=== PATIENT | female | born 1970 | race Caucasian/White ===

== ENCOUNTER 2018-11-13 20:35 | Emergency (ER) | payer OTHER, SELFPAY ==
[2018-11-13] MEDS ORDERED: PANTOPRAZOLE 40 MG INJ ONE (22:51)
[2018-11-13] MEDS ORDERED: NA CHLORIDE 0.9% 1,000 ML ONE (22:51)
[2018-11-13 23:07] LABS: Urine Blood NEGATIVE (NEG); Urine Glucose NEGATIVE (NEG); Urine Protein TRACE (NEG); Urine pH 6.5 (5.0-7.0)
[2018-11-13 23:10] LABS: Albumin 3.7 g/dL (3.4-5.0); Bilirubin Direct 0.2 mg/dL (0-0.2); Bilirubin Total 0.8 mg/dL (0.2-1.0); Protein, Total 7.4 g/dL (6.4-8.2)
[2018-11-13] MEDS ORDERED: DICYCLOMINE HCL 10 MG CAP ONE (23:36)
--- NOTE | 2018-11-14 01:15 | ER ---
Nurse's Notes [facility] Name: Felicity Melendez Age: 48 yrs Sex: Female : 1970 Arrival Date: 11/13/2018 Time: 20:42 Bed 16 Private MD: Diagnosis: Upper abdominal pain, unspecified Presentation: 11/13 20:49 Presenting complaint: Patient states: 1815 epigastric pain with N/V. pt stated "feels ak1 like muscle spasms.". Transition of care: patient was not received from another setting of care. Onset of symptoms was November 13, 2018. Risk Assessment: Do you want to hurt yourself or someone else? Patient reports no desire to harm self or others. Initial Sepsis Screen: Does the patient have a suspected source of infection? No. Patient's initial sepsis screen is negative. Care prior to arrival: None. 20:49 Method Of Arrival: Ambulatory ak1 20:49 Acuity: ROHIT 3 ak1 Triage Assessment: 20:51 General: Appears uncomfortable, Behavior is calm, cooperative. Pain: Complains of pain ak1 in epigastric area, right upper quadrant and left upper quadrant. EENT: No signs and/or symptoms were reported regarding the EENT system. 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 - Social history:: Smoking status: Patient/guardian denies using tobacco. - Ebola Screening: : No symptoms or risks identified at this time. Screenin:52 Abuse screen: Denies threats or abuse. Denies injuries from another. Nutritional ak1 screening: No deficits noted. Tuberculosis screening: No symptoms or risk factors identified. Fall Risk None identified. Assessment: 21:14 General: Appears in no apparent distress. comfortable, Behavior is calm, cooperative, jb4 appropriate for age. Pain: Complains of pain in epigastric area and umbilical area Pain does not radiate. Pain currently is 10 out of 10 on a pain scale. Quality of pain is described as crampy, Pain began 1830. Neuro: Level of Consciousness is awake, alert, obeys commands, Oriented to person, place, time, situation. Cardiovascular: Patient's skin is warm and dry. Respiratory: Airway is patent Respiratory effort is even, unlabored, Respiratory pattern is regular, symmetrical. GI: Abdomen is non-distended, obese, Bowel sounds present X 4 quads. Abd is soft X 4 quads Abd is non tender X 4 quads Abdomen is tender to palpation in epigastric area and umbilical area. : No signs and/or symptoms were reported regarding the genitourinary system. EENT: No signs and/or symptoms were reported regarding the EENT system. Derm: Skin is intact, Skin is pink, warm \\T\\ dry. Musculoskeletal: Circulation, motion, and sensation intact. 22:22 Reassessment: Patient appears in no apparent distress at this time. Patient and/or jb4 family updated on plan of care and expected duration. Pain level reassessed. Patient is alert, oriented x 3, equal unlabored respirations, skin warm/dry/pink. 23:42 Reassessment: Patient appears in no apparent distress at this time. Patient and/or jb4 family updated on plan of care and expected duration. Pain level reassessed. Patient is alert, oriented x 3, equal unlabored respirations, skin warm/dry/pink. 11/14 00:54 Reassessment: Patient appears in no apparent distress at this time. Patient and/or jb4 family updated on plan of care and expected duration. Pain level reassessed. Patient is alert, oriented x 3, equal unlabored respirations, skin warm/dry/pink. Vital Signs: 11/13 20:51 BP 125 / 76; Pulse 82; Resp 16; Temp 98.4(O); Pulse Ox 97% on R/A; Weight 113.4 kg (R); ak1 Height 5 ft. 7 in. (170.18 cm) (R); Pain 8/10; 22:00 BP 123 / 73; Pulse 77; Resp 16; Pulse Ox 99% on R/A; jb4 23:00 BP 110 / 62; Pulse 77; Resp 16; Pulse Ox 99% on R/A; jb4 18 00:36 BP 110 / 57; Pulse 72; Resp 16; Pulse Ox 99% on R/A; jb4 01:31 BP 107 / 75; Pulse 73; Resp 16; Pulse Ox 100% on R/A; jb4 11/13 20:51 Body Mass Index 39.16 (113.40 kg, 170.18 cm) ak1 ED Course: 11/13 20:42 Patient arrived in ED. es 20:50 Triage completed. ak1 20:51 Arm band placed on Patient placed in waiting room, Patient notified of wait time. ak1 20:52 Patient has correct armband on for positive identification. ak1 21:02 Venancio Luevano RN is Primary Nurse. jb4 21:04 Nancy Lange FNP-C is PHCP. kb 21:04 Vidal Yi MD is Attending Physician. kb 21:14 Pulse ox on. NIBP on. jb4 23:[address] via wheelchair. kw1 11/14 00:06 CT completed. Patient tolerated procedure well. Patient moved back from CT. kw1 00:09 CT Stone Protocol In Process Unspecified. EDMS 01:33 No provider procedures requiring assistance completed. IV discontinued, intact, jb4 bleeding controlled. Administered Medications: 11/13 22:53 Drug: NS 0.9% 1000 ml Route: IV; Rate: 1000 ml; Site: left antecubital; jb4 11/14 01:33 Follow up: Response: No adverse reaction; IV Status: Completed infusion jb4 11/13 22:54 Drug: ProTONIX 40 mg Route: IVP; Site: left antecubital; jb4 23:20 Follow up: Response: No adverse reaction; Pain is decreased jb4 23:29 Drug: Bentyl 20 mg Route: PO; jb4 11/14 00:46 Follow up: Response: No adverse reaction; Pain is decreased jb4 01:28 Drug: TORadol 30 mg Route: IVP; Site: left antecubital; jb4 01:32 Follow up: Response: No adverse reaction jb4 Outcome: 01:14 Discharge ordered by . kb 01:33 Discharged to home ambulatory, with family. jb4 01:33 Condition: stable 01:33 Discharge instructions given to patient, family, Instructed on discharge instructions, follow up and referral plans. medication usage, Demonstrated understanding of instructions, follow-up care, medications, Prescriptions given X 3. 01:34 Patient left the ED. jb4 Signatures: Dispatcher [employer] EDMA Nancy Lange FNP-C FNP-Ckb Salyer, Edna es Krenek, Miguelina, RN RN ak1 Venancio Luevano RN RN jb4 Dia Andres kw1 Corrections: (The following items were deleted from the chart) 11/13 20: 21:14 Pain: Complains of pain in epigastric area and umbilical area Pain does not jb4 radiate. Pain currently is 10 out of 10 on a pain scale. Quality of pain is described as crampy, Pain began noon jb4 21:14 GI: Abdomen is non-distended, obese, Bowel sounds present X 4 quads. Abd is soft jb4 X 4 quads Abd is non tender X 4 quads Abdomen is tender to palpation in epigastric area and umbilical area jb4
--- NOTE | 2018-11-14 01:15 | EDPHYS ---
Physician Documentation [facility] Name: Felicity Melendez Age: 48 yrs Sex: Female : 1970 Arrival Date: 11/13/2018 Time: 20:42 Bed 16 Private MD: ED Physician Vidal Yi HPI: 11/14 01:01 This 48 yrs old Female presents to ER via Ambulatory with complaints of kb Abdominal Cramping. 01:01 The patient presents with abdominal pain in the upper abdomen. Onset: The kb symptoms/episode began/occurred today, at 18:30. The symptoms do not radiate. Associated signs and symptoms: Pertinent positives: nausea and vomiting, Pertinent negatives: constipation, diarrhea, fever. The symptoms are described as constant, crampy. Modifying factors: The symptoms are alleviated by nothing, the symptoms are aggravated by nothing. Severity of pain: At its worst the pain was moderate in the emergency department the pain is unchanged. The patient has not experienced similar symptoms in the past. The patient has not recently seen a physician. 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 - Social history:: Smoking status: Patient/guardian denies using tobacco. - Ebola Screening: : No symptoms or risks identified at this time. ROS: 11/14 01:00 Constitutional: Negative for fever, chills, and weight loss, ENT: Negative for injury, kb pain, and discharge, Neck: Negative for injury, pain, and swelling, Cardiovascular: Negative for chest pain, palpitations, and edema, Respiratory: Negative for shortness of breath, cough, wheezing, and pleuritic chest pain, Back: Negative for injury and pain, : Negative for injury, bleeding, discharge, and swelling, MS/Extremity: Negative for injury and deformity, Skin: Negative for injury, rash, and discoloration, Neuro: Negative for headache, weakness, numbness, tingling, and seizure. 01:00 Abdomen/GI: Positive for abdominal pain, nausea and vomiting, Negative for diarrhea, kb constipation, abdominal cramps, abdominal distension, anorexia. Exam: 01:00 Constitutional: This is a well developed, well nourished patient who is awake, alert, kb and in no acute distress. Head/Face: Normocephalic, atraumatic. ENT: Nares patent. No nasal discharge, no septal abnormalities noted. Tympanic membranes are normal and external auditory canals are clear. Oropharynx with no redness, swelling, or masses, exudates, or evidence of obstruction, uvula midline. Mucous membranes moist. Neck: Trachea midline, no thyromegaly or masses palpated, and no cervical lymphadenopathy. Supple, full range of motion without nuchal rigidity, or vertebral point tenderness. No Meningismus. Chest/axilla: Normal chest wall appearance and motion. Nontender with no deformity. No lesions are appreciated. Cardiovascular: Regular rate and rhythm with a normal S1 and S2. No gallops, murmurs, or rubs. Normal PMI, no JVD. No pulse deficits. Respiratory: Lungs have equal breath sounds bilaterally, clear to auscultation and percussion. No rales, rhonchi or wheezes noted. No increased work of breathing, no retractions or nasal flaring. Skin: Warm, dry with normal turgor. Normal color with no rashes, no lesions, and no evidence of cellulitis. MS/ Extremity: Pulses equal, no cyanosis. Neurovascular intact. Full, normal range of motion. Neuro: Awake and alert, GCS 15, oriented to person, place, time, and situation. Cranial nerves II-XII grossly intact. Motor strength 5/5 in all extremities. Sensory grossly intact. Cerebellar exam normal. Normal gait. 01:00 Abdomen/GI: Inspection: abdomen appears normal, Bowel sounds: normal, in all quadrants, Palpation: soft, in all quadrants, mild abdominal tenderness, in the right upper quadrant and left upper quadrant. Vital Signs: 11/13 20:51 BP 125 / 76; Pulse 82; Resp 16; Temp 98.4(O); Pulse Ox 97% on R/A; Weight 113.4 kg (R); ak1 Height 5 ft. 7 in. (170.18 cm) (R); Pain 8/10; 22:00 BP 123 / 73; Pulse 77; Resp 16; Pulse Ox 99% on R/A; jb4 23:00 BP 110 / 62; Pulse 77; Resp 16; Pulse Ox 99% on R/A; 4 11/14 00:36 BP 110 / 57; Pulse 72; Resp 16; Pulse Ox 99% on R/A; jb4 01:31 BP 107 / 75; Pulse 73; Resp 16; Pulse Ox 100% on R/A; 4 11/13 20:51 Body Mass Index 39.16 (113.40 kg, 170.18 cm) ak1 MDM: 11/13 21:04 Patient medically screened. 11/14 01:00 Data reviewed: vital signs, nurses notes. Data interpreted: Pulse oximetry: on room air kb is 99 %. Interpretation: normal. 01:14 Counseling: I had a detailed discussion with the patient and/or guardian regarding: the kb historical points, exam findings, and any diagnostic results supporting the discharge/admit diagnosis, lab results, radiology results, the need for outpatient follow up, a family practitioner, to return to the emergency department if symptoms worsen or persist or if there are any questions or concerns that arise at home. 11/13 22:34 Order name: Basic Metabolic Panel; Complete Time: 23:18 kb 11/13 22:34 Order name: CBC with Diff; Complete Time: 00:48 kb 11/13 22:34 Order name: Hepatic Function; Complete Time: 23:18 kb 11/13 22:34 Order name: Lipase; Complete Time: 23:18 kb 11/13 22:55 Order name: Urine Dipstick--Ancillary (enter results); Complete Time: 23:11 [facility] 11/13 22:55 Order name: Urine --Ancillary (enter results); Complete Time: 23:11 [facility] 11/13 22:34 Order name: IV Saline Lock; Complete Time: 22:36 kb 11/13 22:34 Order name: Labs collected and sent; Complete Time: 22:37 kb 11/13 22:34 Order name: Urine Dipstick-Ancillary (obtain specimen); Complete Time: 22:53 kb 11/13 23:18 Order name: CT Stone Protocol 11/13 22:34 Order name: Urine Test (obtain specimen); Complete Time: 22:53 kb Administered Medications: 11/13 22:53 Drug: NS 0.9% 1000 ml Route: IV; Rate: 1000 ml; Site: left antecubital; [facility] 11/14 01:33 Follow up: Response: No adverse reaction; IV Status: Completed infusion jb4 11/13 22:54 Drug: ProTONIX 40 mg Route: IVP; Site: left antecubital; jb4 23:20 Follow up: Response: No adverse reaction; Pain is decreased jb4 23:29 Drug: Bentyl 20 mg Route: PO; jb4 11/14 00:46 Follow up: Response: No adverse reaction; Pain is decreased jb4 01:28 Drug: TORadol 30 mg Route: IVP; Site: left antecubital; jb4 01:32 Follow up: Response: No adverse reaction jb4 Disposition: :34 Co-signature as Attending Physician, Vidal Yi MD. Disposition: 11/14/18 01:14 Discharged to Home. Impression: Upper abdominal pain, unspecified. - Condition is Stable. - Discharge Instructions: Cholelithiasis, [id number], Abdominal Pain, Adult, [id number]. - Prescriptions for Bentyl 20 mg Oral Tablet - take 1 tablet by ORAL route every 6 hours As needed; 20 tablet. Zofran 4 mg Oral Tablet - take 1 tablet by ORAL route every 6 hours As needed; 20 tablet. Diclofenac Sodium 75 mg Oral Tablet, Delayed Release (E.C.) - take 1 tablet by ORAL route 2 times per day As needed; 30 tablet. - Medication Reconciliation Form, Thank You Letter, Antibiotic Education, Prescription Opioid Use form. - Follow up: Emergency Department; When: As needed; Reason: Worsening of condition. Follow up: Private Physician; When: 2 - 3 days; Reason: Recheck today's complaints, Continuance of care, Re-evaluation by your physician. Signatures: Dispatcher [employer] Nancy Pulliam, CARLOS-C ADMINISTRATIVE INTERN-Miguelina Burleson RN RN ak1 Venancio Luevano RN RN jb4 Vidal Yi MD MD Corrections: (The following items were deleted from the chart) :34 01:14 11/14/2018 01:14 Discharged to Home. Impression: Upper abdominal pain, jb4 unspecified. Condition is Stable. Forms are Medication Reconciliation Form, Thank You Letter, Antibiotic Education, Prescription Opioid Use. Follow up: Emergency Department; When: As needed; Reason: Worsening of condition. Follow up: Private Physician; When: 2 - 3 days; Reason: Recheck today's complaints, Continuance of care, Re-evaluation by your physician. kb
[2018-11-14] MEDS ORDERED: KETOROLAC 30 MG/ML INJ ONE (01:24)
[2018-11-14 02:42] VITALS: TEMP 98.4
[2018-11-14 02:49] VITALS: BP 107/75; O2SAT 100
--- NOTE | 2018-11-14 08:20 | RAD REPORT ---
EXAM DESCRIPTION: CT - Stone Protocol - 11/14/2018 3:13 am CLINICAL HISTORY: Flank pain. ABD PAIN COMPARISON: No comparisons TECHNIQUE: Axial images were obtained without oral or IV contrast. Lack of contrast limits solid org an and vascular assessment. The [id number] spans the entirety of the system partially obscuring uppermost abdomen and lung bases. Coronal reformatted images were obtained and reviewed. All CT scans are performed using dose optimization technique as appropriate and may include automated exposure control or mA/KV adjustment according to patient size. FINDINGS: The lower lung salazar are clear. Cholelithiasis. Imaged portions of the liver and spleen show no suspicious findings on non-contrast imaging. The panc reas and adrenal glands are normal. No pathologic lymphadenopathy in the abdomen or pelvis. No urinary tract stones or obstructive uropathy. No bowel obstruction, free air, free fluid or abscess. Small fat containing umbilical hernia. Normal appendix noted. No significant bony abnormality. IMPRESSION: No urinary tract stones or obstructive uropathy. Cholelithiasis. Small fat containing umbilical hernia.
== END 2018-11-14 01:34 | disposition home or self-care (01) ==
LOC: ER 20:35
DX: R10.10 Upper abdominal pain, unspecified (principal)
CPT/HCPCS: 36415; 74176; 76377; 80048; 80076; 81003; 81025; 83690; 85025; C9113; J7030

== ENCOUNTER 2024-09-18 13:51 | Emergency (ER) | payer SELFPAY ==
[2024-09-18 14:31] LABS: Absolute Basophils 0.1 K/uL (0-0.5); Absolute Eosinophils 0.1 K/uL (0-0.5); Absolute Lymphocytes (CBC) 1.8 K/uL (0.7-4.9); Absolute Monocytes 0.7 K/uL (0.1-1.3); Absolute Neutrophil 4.3 K/uL (1.8-8.0); Basophils % 0.7 % (0-1.3); Eosinophils % 1.9 % (0-4.4); Hematocrit 46.4 % (36.0-45.0); Hemoglobin 15.6 g/dL (12.0-15.0); Lymphocytes % 26.3 % (15.3-44.8); MCH 30.1 pg (27.0-35.0); MCHC 33.6 g/dL (32.0-36.0); MCV 89.7 fL (80-100); MPV 8.9 fL (7.6-11.3); Monocytes % 9.4 % (3.3-12.3); Neutrophils % 61.7 % (41.7-73.7); Nucleated Red Blood Cells % 0.1 % (0-0); Platelets 227 thou/uL (152-406); RBC Red Blood Cell Count 5.17 M/uL (3.86-4.86); Red Cell Distribution Width 13.7 % (12.1-15.2)
[2024-09-18] MEDS ORDERED: FAMOTIDINE 20 MG/2 ML VIAL IV ONE (14:39)
[2024-09-18] MEDS ORDERED: MORPHINE 4 MG/ML SYR ONE (14:39)
[2024-09-18] MEDS ORDERED: ONDANSETRON 4 MG/2 ML VIAL ONE (14:39)
[2024-09-18 14:47] LABS: ALT/SGPT 51 U/L (13-56); AST/SGOT 38 U/L (15-37); Albumin 3.7 g/dL (3.4-5.0); Albumin/Globulin Ratio 0.9 (1.1-1.8); Alkaline Phosphatase 99 U/L (45-117); Anion Gap 8.7 mEq/L (5.0-15.0); BUN Blood Urea Nitrogen 13 mg/dL (7-18); Bicarbonate 26 mEq/L (21-32); Bilirubin Direct 0.2 mg/dL (0-0.2); Bilirubin Indirect, Calculated 0.4 mg/dL (0.2-0.8); Bilirubin Total 0.6 mg/dL (0.2-1.0); Glomerular Filtration Rate 80 ml/min (=/>90); Glucose Level 110 mg/dL (74-106); Potassium 3.7 mEq/L (3.5-5.1); Protein, Total 7.7 g/dL (6.4-8.2); Sodium Level 138 mEq/L (136-145)
[2024-09-18 14:51] LABS: Troponin High Sensitivity < 3.0 pg/mL (<58.9)
--- NOTE | 2024-09-18 15:02 | RAD REPORT ---
Procedure: Chest Single View HISTORY: Chest pain COMPARISON: 2011 FINDINGS: The lungs appear clear of acute infiltrate. No significant pleural effusion noted. The heart is normal size. IMPRESSION: No acute abnormality is displayed.
--- NOTE | 2024-09-18 15:07 | RAD REPORT ---
EXAM: Right upper quadrant ultrasound. CLINICAL HISTORY: Abdominal pain COMPARISON: None FINDINGS: 1 cm mobile gallstone within the neck of the gallbladder. Gallbladder wall not thickened. Biliary tree normal caliber IMPRESSION: Cholelithiasis without evidence of cholecystitis
[2024-09-18 15:13] LABS: Specific Gravity < 1.005 (1.005-1.030); Sqamous Epithelial None Seen /HPF (None Seen); Urine Bacteria None Seen /HPF (<20); Urine Bilirubin NEGATIVE (Negative); Urine Blood Negative (Negative); Urine Clarity Clear (Clear); Urine Color Colorless (Yellow); Urine Crystals Unidentified Few /HPF (None Seen); Urine Culture Reflex Order NOT NEEDED; Urine Glucose NEGATIVE (Negative); Urine Ketones NEGATIVE (Negative); Urine Micro Reflex YN NO BILL MICROSCOPIC; Urine Nitrite NEGATIVE (Negative); Urine Protein NEGATIVE (Negative); Urine RBC <5 /HPF (None Seen); Urine Urobilinogen Normal (Normal); Urine WBC <5 /HPF (<5); Urine pH 6.5 (5.0-7.0)
[2024-09-18] MEDS ORDERED: KETOROLAC 30 MG/ML INJ ONE (15:29)
--- NOTE | 2024-09-18 16:38 | EDPHYS ---
Physician Documentation [facility] Name: Felicity Melendez Age: 54 yrs Sex: Female : 1970 Arrival Date: 09/18/2024 Time: 13:51 Bed 19 Private MD: ED Physician Bal Levi HPI: 09/18 13:58 This 54 yrs old Female presents to ER via Unassigned with complaints of ec2 chest/abd pain. 13:58 Patient arrives today for evaluation of chest pain and upper abdominal pain. Patient ec2 reports that she has been having chest pain ongoing throughout the day, has been intermittent for the past week. Patient reports some upper abdominal pain as well. Reports that she has no specific alleviating or exacerbating factors.. Historical: - Allergies: 14:19 No Known Allergies; hb - Home Meds: 14:19 None [Active]; hb - PMHx: 14:19 None; hb - Immunization history:: Adult Immunizations up to date. - Infectious Disease History:: Denies. - Social history:: Smoking status: Patient denies any tobacco usage or history of. ROS: 13:58 Constitutional: as per hpi ec2 Exam: 13:58 Constitutional: GEN: NAD Head: atraumatic Eyes: EOMI Ears: External ears are ec2 normal. CV: regular rate LUNGS: no respiratory distress ABD: non-distended, soft, minimally tender in the epigastrium, not guarding, not rigid SKIN: no evidence of rashes MSK: no evidence of trauma Vital Signs: 13:55 BP 156 / 86; Pulse 88; Resp 16; Temp 97.2; Pulse Ox 100% on R/A; Pain 5/10; hb 14:49 BP 161 / 87; Pulse 81; Resp 16; Pulse Ox 100% on R/A; hb 16:03 BP 136 / 85; Pulse 74; Resp 15; Pulse Ox 99% on R/A; hb 16:28 BP 110 / 61; Pulse 86; Resp 17; Pulse Ox 99% on R/A; hb 13:55 Pain Scale: Adult hb MDM: 13:57 Medical Screening Exam initiated ec2 13:58 Data reviewed: vital signs, nurses notes. ED course: Patient arrives today for chest ec2 and abdominal pain. Examination shows abdominal findings as above. Will obtain lab work, EKG, chest x-ray well as ultrasound. Differential includes gastritis, ACS, doubt PE, doubt dissection.. 14:43 ED course: EKG independently reviewed and interpreted by me, shows normal sinus rhythm, ec2 rate of 79, no acute ST segment elevations, intervals are nonactionable.. 15:19 ED course: Urine noninfectious, chest x-ray shows no acute intrathoracic process. ec2 Ultrasound shows gallstones without infection. Will obtain repeat EKG and troponin.. 16:01 ED course: EKG independently reviewed and interpreted by me, shows normal sinus rhythm, ec2 rate of 78, no acute ST segment elevations, intervals are nonactionable.. 16:56 ED course: I did discuss case with Dr. Husain, cardiology who recommended outpatient ec2 follow-up and will see the patient on Saturday. Patient discharged home. Return precautions given.. 09/18 13:54 Order name: Basic Metabolic Panel; Complete Time: 14:53 ec2 09/18 13:54 Order name: CBC with Diff; Complete Time: 14:45 ec2 09/18 13:54 Order name: Troponin HS; Complete Time: 14:53 ec2 09/18 13:54 Order name: LFT's; Complete Time: 14:53 ec2 09/18 14:58 Order name: UAM; Complete Time: 15:19 ec2 09/18 15:56 Order name: Troponin HS; Complete Time: 16:35 hb 09/18 13:54 Order name: XRAY Chest (1 view); Complete Time: 15:19 ec2 09/18 13:54 Order name: US Abdomen Limited; Complete Time: 15:19 ec2 09/18 13:54 Order name: EKG; Complete Time: 13:55 ec2 09/18 13:54 Order name: Cardiac monitoring; Complete Time: 14:25 ec2 09/18 13:54 Order name: EKG - Nurse/Tech; Complete Time: 14:48 ec2 09/18 13:54 Order name: IV Saline Lock; Complete Time: 14:25 ec2 09/18 13:54 Order name: Labs collected and sent; Complete Time: 14:25 ec2 09/18 13:54 Order name: O2 Per Protocol; Complete Time: 14:25 ec2 09/18 13:54 Order name: O2 Sat Monitoring; Complete Time: 14:25 ec2 09/18 15:20 Order name: Ольгаc. Order: repeat ekg/trop at 1600; Complete Time: 16:02 ec2 Administered Medications: 14:48 Not Given (Patient Refused): morphineor iv 4 mg IVP once over 4 mins hb 14:48 Drug: Famotidine IVP 20 mg IVP once; dilute with 10 mL 0.9% NaCl; give over 2 minutes hb Route: IVP; Site: right forearm; 15:11 Follow up: Response: No adverse reaction hb 14:48 Drug: Ondansetron IVP 4 mg IVP once; over 2 minutes Route: IVP; Site: right forearm; hb 15:11 Follow up: Response: No adverse reaction hb 15:53 Drug: Ketorolac IVP 30 mg IVP once Route: IVP; Site: right forearm; hb 16:20 Follow up: Response: No adverse reaction hb Disposition Summary: 09/18/24 16:37 Discharge Ordered Notes: Location: Home ec2 Condition: Stable ec2 Diagnosis - Chest pain, unspecified ec2 Followup: ec2 - With: Private Physician - When: - Reason: Re-evaluation by your physician Discharge Instructions: - Discharge Summary Sheet ec2 - Nonspecific Chest Pain, Adult, [id number] ec2 Forms: - Medication Reconciliation Form ec2 - Antibiotic Education ec2 - Prescription Opioid Use ec2 - Patient Portal Instructions ec2 - Leadership Thank You Letter ec2 Signatures: Dispatcher [employer] Fifi Almazan RN RN Bal Levi MD MD ec2 Corrections: (The following items were deleted from the chart) 13:55 13:55 Abdomen Limited+[email or web address] ordered. JANET GONZALES
--- NOTE | 2024-09-18 16:38 | ER ---
Nurse's Notes [facility] Name: Felicity Melendez Age: 54 yrs Sex: Female : 1970 Arrival Date: 09/18/2024 Time: 13:51 Bed 19 [facility] MD: Diagnosis: Chest pain, unspecified Presentation: 09/18 13:55 Chief complaint: Intermittent chest pain that radiates to neck and back x 2 weeks. hb Coronavirus screen: At this time, the client does not indicate any symptoms associated with coronavirus-19. Ebola Screen: No symptoms or risks identified at this time. Initial Sepsis Screen: Does the patient meet any 2 criteria? No. Patient's initial sepsis screen is negative. Does the patient have a suspected source of infection? No. Patient's initial sepsis screen is negative. Risk Assessment: Do you want to hurt yourself or someone else? Patient reports no desire to harm self or others. Onset of symptoms was September 04, 2024. 13:55 Method Of Arrival: Ambulatory hb 13:55 Acuity: ROHIT 3 hb Historical: - Allergies: 14:19 No Known Allergies; hb - Home Meds: 14:19 None [Active]; hb - PMHx: 14:19 None; hb - Immunization history:: Adult Immunizations up to date. - Infectious Disease History:: Denies. - Social history:: Smoking status: Patient denies any tobacco usage or history of. Screenin:21 [facility] ED Fall Risk Assessment (Adult) History of falling in the last 3 months, hb including since admission No falls in past 3 months (0 pts) Confusion or Disorientation No (0 pts) Intoxicated or Sedated No (0 pts) Impaired Gait No (0 pts) Mobility Assist Device Used No (0 pt) Altered Elimination No (0 pt) Score/Fall Risk Level 0 - 2 = Low Risk Oriented to surroundings, Maintained a safe environment, Educated pt \T\ family on fall prevention, incl call for assistance when getting out of bed. Abuse screen: Denies threats or abuse. Denies injuries from another. Nutritional screening: No deficits noted. Tuberculosis screening: No symptoms or risk factors identified. Assessment: 14:20 General: Appears in no apparent distress. Behavior is calm, cooperative. Pain: Pain hb currently is 5 out of 10 on a pain scale. Neuro: GCS 15. Cardiovascular: Reports chest pain, Rhythm is regular. Respiratory: Respiratory effort is even, unlabored, Respiratory pattern is regular, symmetrical. GI: No signs and/or symptoms were reported involving the gastrointestinal system. : No signs and/or symptoms were reported regarding the genitourinary system. EENT: No signs and/or symptoms were reported regarding the EENT system. Derm: Skin is pink, warm \T\ dry. Musculoskeletal: No signs and/or symptoms reported regarding the musculoskeletal system. 14:48 Reassessment: Patient appears in no apparent distress at this time. Patient and/or hb family updated on plan of care and expected duration. Pain level reassessed. Patient is alert, oriented x 3, equal unlabored respirations, skin warm/dry/pink. 15:55 Reassessment: Patient appears in no apparent distress at this time. Patient and/or hb family updated on plan of care and expected duration. Pain level reassessed. Patient is alert, oriented x 3, equal unlabored respirations, skin warm/dry/pink. 16:28 Reassessment: Patient appears in no apparent distress at this time. Patient and/or hb family updated on plan of care and expected duration. Pain level reassessed. Patient is alert, oriented x 3, equal unlabored respirations, skin warm/dry/pink. Vital Signs: 13:55 BP 156 / 86; Pulse 88; Resp 16; Temp 97.2; Pulse Ox 100% on R/A; Pain 5/10; hb 14:49 BP 161 / 87; Pulse 81; Resp 16; Pulse Ox 100% on R/A; hb 16:03 BP 136 / 85; Pulse 74; Resp 15; Pulse Ox 99% on R/A; hb 16:28 BP 110 / 61; Pulse 86; Resp 17; Pulse Ox 99% on R/A; hb 13:55 Pain Scale: Adult hb ED Course: 13:52 Patient arrived in ED. ss 13:53 Bal Levi MD is Attending Physician. ec2 13:53 Reuben Nam PA is PHCP. cp 14:15 Inserted saline lock: 20 gauge in right forearm, using aseptic technique. ,using hb aseptic technique. US GUIDED Blood collected. Flushed with 10 mL NS. 14:19 Triage completed. hb 14:20 Patient taken to ultrasound. via wheelchair. hb 14:20 Arm band placed on. hb 14:20 Patient maintains SpO2 saturation greater than 95% on room air. hb 14:30 Patient has correct armband on for positive identification. Provided Education on: hb tests, result times . 14:32 US Abdomen Limited In Process Unspecified. EDMS 14:54 XRAY Chest (1 view) In Process Unspecified. EDMS 15:11 Fifi Higgins, RN is Primary Nurse. hb 16:03 Troponin HS Sent. hb 17:11 No provider procedures requiring assistance completed. IV discontinued, intact, hb bleeding controlled, No redness/swelling at site. Pressure dressing applied. Administered Medications: 14:48 Not Given (Patient Refused): morphineor iv 4 mg IVP once over 4 mins hb 14:48 Drug: Famotidine IVP 20 mg IVP once; dilute with 10 mL 0.9% NaCl; give over 2 minutes hb Route: IVP; Site: right forearm; 15:11 Follow up: Response: No adverse reaction hb 14:48 Drug: Ondansetron IVP 4 mg IVP once; over 2 minutes Route: IVP; Site: right forearm; hb 15:11 Follow up: Response: No adverse reaction hb 15:53 Drug: Ketorolac IVP 30 mg IVP once Route: IVP; Site: right forearm; hb 16:20 Follow up: Response: No adverse reaction hb Medication: 17:10 VIS not applicable for this client. hb Outcome: 16:37 Discharge ordered by . ec2 17:11 Discharged to home ambulatory, with family, hb 17:11 Condition: stable 17:11 Discharge instructions given to patient, family, Instructed on discharge instructions, follow up and referral plans. medication usage, Demonstrated understanding of instructions, follow-up care, medications, 17:11 Patient left the ED. hb Signatures: Dispatcher [employer] EDDC Jennifer Isbell RN RN ss Page, Corey, PA PA cp Baxter, Heather, TOAN RN Bal Barber MD MD ec2
[2024-09-18 18:07] VITALS: TEMP 97.2
[2024-09-18 18:19] VITALS: O2SAT 99
[2024-09-18 18:20] VITALS: BP 110/61
--- NOTE | 2024-09-21 12:04 | EKG ---
Test Date: 2024-09-18 Test Time: 14:40:04 Bus Steward: TED MEASUREMENT RESULTS: Intervals: Rate: 79 KS: 142 QRSD: 78 QT: 380 QTc: 435 [place]: P: -11 [place]: 142 QRS: 40 T: -5 INTERPRETIVE STATEMENTS: Normal sinus rhythm Cannot rule out Anterior infarct, age undetermined Abnormal ECG Compared to ECG 10/04/2012 14:31:51 Myocardial infarct finding now present Electronically Signed On 09-21-24 12:01:37 CORRUGATED FASTENER DRIVER by Sathish Dutton
--- NOTE | 2024-09-22 10:08 | EKG ---
Test Date: 2024-09-18 Test Time: 15:59:12 Fingerprint Classifier: TED MEASUREMENT RESULTS: Intervals: Rate: 78 ME: 156 QRSD: 78 QT: 382 QTc: 435 [place]: P: 59 ME: 156 QRS: 60 T: 22 INTERPRETIVE STATEMENTS: Normal sinus rhythm Normal ECG Compared to ECG 09/18/2024 14:40:04 Myocardial infarct finding no longer present Electronically Signed On 09-22-24 10:06:54 ENVIRONMENTAL ENGINEERING INTERN by Sathish Dutton
== END 2024-09-18 17:11 | disposition home or self-care (01) ==
LOC: ER 13:51
DX: R07.9 Chest pain, unspecified (principal); R10.10 Upper abdominal pain, unspecified
CPT/HCPCS: 36415; 71045; 76705; 80048; 80076; 81001; 84484; 85025; 93005; 96374; 96375; 99285; J2405